=== PATIENT | male | born 1990 | race Caucasian/White ===

== ENCOUNTER 2017-01-29 10:10 | Emergency (ER) | payer SELFPAY ==
[2017-01-29 10:30] VITALS: BP 118/77
--- NOTE | 2017-01-29 10:59 | XRay Report ---
Left hand 3 views: History: Left hand injury after fall. Findings: There is fracture noted at base of proximal phalanx fifth finger left hand. Impression: Fracture proximal phalanx fifth finger left hand.
[2017-01-29] MEDS ORDERED: TORADOL IM ONE (11:27)
--- NOTE | 2017-01-29 13:18 | Emergency Department Report ---
ED Upper Extremity Inj HPI - General Chief Complaint: Fall Stated Complaint: FALLEN,LEFT HAND SWOLLEN Source: patient Mode of arrival: Ambulatory Limitations: Language Barrier - History of Present Illness Initial Comments: 26 y/o M with no significant PMHx presents with left PIP joint pain after falling down the stairs on Friday. He states that he fell and landed on his left PIP joint. Pt denies any trauma to the head, LOC, dizziness, or blurriness of the vision. Pt has been taking tylenol with no relief of the pain. Pt denies any numbness or tingling at the site. Pt reports the pain to be a 5/10 in severity pain. Pt reports increased pain with movement of the joint. NKDA. Script Manager was utilized as the patient did not speak Divehi. Complaint: Injury to:: left, finger -: days(s) (2) Other Extremity Injury: Fingers: Left (left PIP, and MIP, and DIP pain, swelling , and tenderness) Other Injuries: none Place: home Severity scale (0 -10): 5 Improves With: medication Worsens With: movement of extremity Context: fall (fell down the stairs 2 days ago and landed on the Left hand) Associated Symptoms: weakness. denies: numbness, suspects foreign body, nausea/ vomiting, heard/felt popping sensat Treatments Prior to Arrival: other (tylenol) - Related Data Previous Rx's Medication Instructions Recorded Last Taken Type Cyclobenzaprine HCl [Flexeril 5 MG 5 mg PO TID PRN #15 tab 01/29/17 Unknown Rx TAB] Ibuprofen [Motrin 800 MG tab] 800 mg PO Q8HR PRN #18 tablet 01/29/17 Unknown Rx Allergies Allergy/AdvReac Type Severity Reaction Status Date / Time No Known Allergies Allergy Unverified 01/29/17 10:24 ED Review of Systems ROS: Stated complaint: FALLEN,LEFT HAND SWOLLEN Other details as noted in HPI Constitutional: denies: chills, fever Eyes: denies: eye pain, eye discharge, vision change Respiratory: denies: cough, shortness of breath, wheezing Cardiovascular: denies: chest pain, palpitations Musculoskeletal: other (left PIP pain, redness, and swelling) Skin: other (redness noted around the site of injury). denies: rash, lesions Neurological: denies: headache, weakness, paresthesias ED Past Medical Hx - Past Medical History Previous Medical History?: No - Surgical History Past Surgical History?: No - Social History Smoking Status: Current Every Day Smoker Substance Use Type: Alcohol - Medications Home Medications: Home Medications Medication Instructions Recorded Confirmed Last Taken Type Cyclobenzaprine HCl [Flexeril 5 MG 5 mg PO TID PRN #15 tab 01/29/17 Unknown Rx TAB] Ibuprofen [Motrin 800 MG tab] 800 mg PO Q8HR PRN #18 tablet 01/29/17 Unknown Rx ED Physical Exam - General Limitations: Language Barrier General appearance: alert, in no apparent distress - Head Head exam: Present: atraumatic, normocephalic - Neck Neck exam: Present: normal inspection - Respiratory Respiratory exam: Present: normal lung sounds bilaterally. Absent: respiratory distress - Cardiovascular Cardiovascular Exam: Present: regular rate, normal rhythm. Absent: systolic murmur, diastolic murmur, rubs, gallop - Extremities Exam Extremities exam: Present: other (there is TTP at the left DIP, PIP, and MIP areas. ROM limited of the fifth finger. ROM full of the left wrist pulses intact, manager database strength reduced, no opening of the skin noted, no pain or tenderness noted at b/l elbows) - Neurological Exam Neurological exam: Present: alert, oriented X3 - Skin Skin exam: Present: warm (there is mild redness noted at the site of injury, there is about a quarter sized superficial abrasion noted at the right elbow), dry, intact, normal color. Absent: rash ED Course Vital Signs 01/29/17 10:25 Temperature 98.3 F Pulse Rate 72 Respiratory 18 Rate Blood Pressure 118/77 O2 Sat by Pulse 95 Oximetry - Reevaluation(s) Reevaluation #1: 01/29/17 13:22 pt was evaluated by myself, Dr. Pascal, and Dr. Dewitt was consulted for the case. - Orthopedic Fracture Reduction Fracture #1 Consent Obtained: verbal consent Side: left Fracture Reduction Location: finger Analgesia: digital block Technique: direct manipulation Post-Reduction Neuro Exam: intact Post-Reduction Vascular Exam: intact Splint Applied: Yes Patient Tolerated Procedure: well Additional Comments: Procedure was conducted by Dr. Dewitt. He used lidiocaine, digital block to numb the left fifth finger. Traction was used to place the PIP joint back into place. Pt tolerated the procedure well. Repeat xray was conducted. ED Medical Decision Making - Radiology Data Radiology results: image reviewed There was a fracture noted on the left PIP joint. There was also lateral displacement of the left PIP. Repeat xray s/p repair reports improvement of the displacement. - Medical Decision Making Original Xray was indicative of a fracture to the PCP joint of the fifth finger of the left hand with lateral displacement. Dr. Dewitt was consulted to the case, he conducted a digital block with lidocaine and placed the joint back into place. The finger was re-imaged s/p reduction and reported improvement of the displacement. The area of concern was evaluated again by Dr. Dewitt s/p reduction. Pt received toradol 30 mg here in the ED for the pain, with no adverse reaction. Pt tolerated the procedure and medication well. Pt was discharged with muscle relaxant and pain medications. RICE therapy. He was instructed to follow-up with Dr. Dewitt at the beginning of next week. Pt was discharged in stable condition, alert and oriented, and in no resp distress. Critical care attestation.: If time is entered above; I have spent that time in minutes in the direct care of this critically ill patient, excluding procedure time. ED Disposition Clinical Impression: Fracture, finger Qualifiers: Encounter type: initial encounter Finger: little finger Fracture type: closed Phalanx: proximal Fracture alignment: displaced Laterality: left Qualified Code( s): S62.617A - Displaced fracture of proximal phalanx of left little finger, initial encounter for closed fracture Disposition: DC-01 TO HOME OR SELFCARE Is pt being admited?: No Does the pt Need Aspirin: No Condition: Stable Instructions: Cyclobenzaprine (By mouth), Finger Fracture (ED), RICE Therapy ( ED) Additional Instructions: Please rest the area. REST, ICE , COMPRESS, AND ELEVATE the joint above the level of your heart. A splint has been applied please keep it on. Please follow -up with Dr. Dewitt at the beginning of next week. Be advised the muscle relaxant may make you drowsy, please only take at night, not when operating heavy machinery. Please return to the ED with any worsening symptoms. Prescriptions: Cyclobenzaprine HCl [Flexeril 5 MG TAB] 5 mg PO TID PRN #15 tab PRN Reason: pain Ibuprofen [Motrin 800 MG tab] 800 mg PO Q8HR PRN #18 tablet PRN Reason: pain Referrals: PRIMARY CARE,MD [Primary Care Provider] - 3-5 Days EMILY DEWITT MD [Staff Physician] - 3-5 Days Forms: Work/School Release Form(ED) Print Language: BURKIN[place]
[2017-01-29] MEDS ORDERED: XYLOCAINE 1% MPF 5 mL ONE ×2 (13:35→13:36)
--- NOTE | 2017-01-29 14:14 | XRay Report ---
Left hand 2 views: History: Postreduction. Findings: The fracture fragments of the proximal phalanx fifth finger appears satisfactory aligned. No dislocation is noted. Impression: Stable postreduction fracture proximal phalanx fifth finger left hand..
== END 2017-01-29 15:47 | disposition home or self-care (01) ==
LOC: ED 10:10
DX: S62.617A Displaced fracture of proximal phalanx of left little finger, initial encounter for closed fracture (principal); F17.200 Nicotine dependence, unspecified, uncomplicated; W18.39XA Other fall on same level, initial encounter; Y93.89 Activity, other specified; Y92.89 Other specified places as the place of occurrence of the external cause; Y99.8 Other external cause status
CPT/HCPCS: 26725; 73120; 73130; 96372; 99284; J1885